=== PATIENT | male | born 1995 | race Caucasian/White ===

== ENCOUNTER 2024-04-03 15:56 | Emergency (ER) | payer SELFPAY ==
[2024-04-03 15:56] VITALS: BP 163/94; PULSE 65; RESP 20; TEMP 36.1; O2SAT 100; BMI 36.0
[2024-04-03 15:57] VITALS: BP 163/94; PULSE 65; RESP 20; TEMP 36.1; O2SAT 100
--- NOTE | 2024-04-03 16:07 | ED.RN ---
C/O BLOOD IN URINE. PT STATES HE THINKS IT WAS BLOOD BECAUSE IT HAS BEEN RED. PT DENIES ANY URINARY SYMPTOMS. DENIES ANY RECENT INJURY OR ILLNESS. PT DENIES ANY N/V/D. PT DENIES ANY OTHER COMPLAINTS.
--- NOTE | 2024-04-03 16:14 | CT_ITS ---
STUDY: CT ABDOMEN AND PELVIS WITHOUT CONTRAST REASON FOR EXAM: Male, 28 years old. Hematuria RADIATION DOSAGE (If Supplied By Facility): CTDIvol = ( 22.91 ) mGy, DLP = ( 1356.55 ) mGycm TECHNIQUE: Transaxial images were obtained from the dome of the diaphragm to the symphysis pubis without oral contrast, and without intravenous contrast. Sagittal and coronal images were reconstructed. Individualized dose optimization techniques were used for this CT. COMPARISON: 03/29/2012 CT abdomen and pelvis FINDINGS: The visualized lung bases are unremarkable. The visualized portions of the heart are within normal limits. Normal liver. Normal gallbladder and extrahepatic biliary system. Normal spleen. Normal pancreas. Normal bilateral adrenal glands. Normal right kidney. Large renal pelvic stone is present measuring approximately 5 mm with additional punctate stone. No evidence of significant hydronephrosis or ureteral stone. Normal visualized stomach. Normal small intestine. Normal colon. The appendix is visualized and appears normal. Normal abdominal aorta. Normal inferior vena cava. Normal retroperitoneum. Normal urinary bladder. Normal abdominal wall. Normal osseous structures. CT/Abdomen/Pelvis without Cont IMPRESSION: Nonobstructive left renal pelvis and 5 mm stone with no significant hydronephrosis or ureteral stone. Otherwise no additional acute intra-abdominal process or focal inflammation. Normal appendix. Electronically Signed: Kashif Vaughn, at 17:00 EST ,
--- NOTE | 2024-04-03 16:22 | EX.ED.DYSGE1 ---
HPI History of Present Illness Chief Complaint: Complaint Narrative Narrative: Chief complaint and HPI: Hematuria. 28-year-old male with no significant past medical history presents for evaluation of hematuria. Onset 2 days ago. Patient denies any fever, chills, dysuria, abdominal pain, nausea, vomiting, back pain. Patient denies being sexually active. He has no concerns for STI. He denies history of UTI or urolithiasis in the past. He denies any penile or testicular pain or or discharge. Review of systems: See HPI Medications: As listed on the chart Allergies: As listed on the chart PFSH: Per chart Vital signs: As listed on the chart. Reviewed. Physical exam: Gen: A&O x3, NAD Head: Normocephalic, atraumatic Eyes: No sclera icterus, conjunctiva clear ENT: Moist mucous membranes Neck: Trachea midline, No JVD CV: RRR, no murmurs, no peripheral edema Resp: Lungs CTA BL, no w/r/c GI: Abd soft, non-distended, non-tender, no r/r/g : Circumcised penis. No penile tenderness or discharge. No penile or testicular swelling. Normal lie and position of the testicles. No testicular tenderness, masses, or skin changes. Cremasteric reflexes intact and equal bilaterally. No rashes. No palpable hernias. No CVA tenderness. Musc: Full ROM, no deformity Skin: Warm, dry Neuro: Alert, oriented, grossly intact, sensation intact Psych: Cooperative, appropriate mood and affect PFSH PFSH Home Medications ?Medication ?Instructions ?Recorded ?Last Taken ?Type No Known/Unobtainable [No Known 09/21/13 Unknown History Home Medications] Allergy/AdvReac Type Severity Reaction Status Date / Time Sulfa (Sulfonamide Allergy Unknown PT UNSURE Verified 04/03/24 16:11 Antibiotics) OF REACTION Social History Smoking Status: Never smoker EXAM Physical Exam Const Vital Signs: 04/03/24 15:56 04/03/24 15:57 04/03/24 17:25 Temperature 97 F L 97.0 F L 98.7 F Temperature Source Temporal Oral Oral Pulse Rate 65 65 64 Respiratory Rate 20 H 20 H 16 Blood Pressure 163/94 H 163/94 H 124/88 H Blood Pressure Mean 117 117 100 Pulse Ox 100 100 97 Oxygen Delivery Method Room Air Room Air Room Air MDM MDM MDM Narrative Medical decision making narrative: 28-year-old male with no significant past medical history presents for evaluation of hematuria. Onset 2 days ago. Differential diagnosis includes but is not limited to UTI, urolithiasis, LACHELLE, electrolyte abnormality. Basic labs ordered including UA and CT abdomen and pelvis. CBC without leukocytosis or anemia. BMP unremarkable without LACHELLE. CT abdomen pelvis shows nonobstructing left renal pelvis and 5 mm stone with no significant hydronephrosis or ureteral stone. UA positive for UTI. Patient has blood, nitrates, bacteria. Urine culture sent. Bladder scan was obtained and patient is not retaining. Per EMRA antibiotic guidelines, patient is low risk for resistance and has not been on recent antibiotics therefore Keflex is appropriate for antibiotic. Patient given first dose here. Patient will be discharged on Keflex 500 mg 4 times daily for 7 days. Follow-up with PCP. He confirmed understanding of the plan. Return precautions explained. Patient stable to discharge home. Impression: 1. UTI 2. Hematuria Lab Data Labs: Laboratory Results - last 24 hr 04/03/24 16:38 WBC 5.4 RBC 5.38 Hgb 15.2 Hct 46.1 MCV 85.7 MCH 28.3 MCHC 33.0 RDW Std Deviation 39.4 RDW Coeff of Janet 12.8 Plt Count 235 MPV 9.5 Immature Gran % (Auto) 0.200 Neut % (Auto) 55.7 Lymph % (Auto) 32.2 [place] % (Auto) 7.9 Eos % (Auto) 3.1 Baso % (Auto) 0.9 Absolute Neuts (auto) 3.0 Absolute Lymphs (auto) 1.75 Nucleated RBC % 0 Sodium 138 Potassium 3.7 Chloride 104 Carbon Dioxide 28.0 Anion Gap 6 BUN 14 Creatinine 0.99 Estim Creat Clear Calc 151.77 Est GFR (MDRD) Af Amer 114 Est GFR (MDRD) Non-Af 94 BUN/Creatinine Ratio 14.1 Glucose 101 Calcium 9.5 Urine Color Yellow Urine Clarity Cloudy Urine pH 6.0 Ur Specific [place] 1.025 Urine Protein 100 H Urine Glucose (UA) Normal Urine Ketones 5 H Urine Occult Blood 250 H Urine Nitrite Positive H Urine Bilirubin 1 H Urine Urobilinogen 8 H Ur Leukocyte Esterase 25 H Urine RBC > 100 SEEN Urine WBC 10-25 SEEN Ur Squamous Epith Cells 0 SEEN Urine Bacteria 1+ Urine Mucus 1+ Radiography Diagnostic Testing: Clinical Impression(s) from Imaging Studies Abdomen/Pelvis CT 04/03/24 16:14 IMPRESSION: Nonobstructive left renal pelvis and 5 mm stone with no significant hydronephrosis or ureteral stone. Otherwise no additional acute intra-abdominal process or focal inflammation. Normal appendix. Electronically Signed: Kashif Mendes, at 17:00 EST , Discharge Plan Triage Chief Complaint: Complaint ED Provider: Pool Guevara Dx/Rx/DC Orders Prescriptions: No Action No Known Home Medications Primary Care Provider: Care Physician,No Primary Referrals: Care Physician,No Primary [Primary Care Provider] - Print Language: Bengali
[2024-04-03 16:49] LABS: Squamous Epithelial Cells - UA 0 SEEN /hpf (0-5)
[2024-04-03 16:51] LABS: Color, Urine Yellow (Yellow); Glucose, Dipstick Normal (Normal); Ketone-Dipstick 5 mg/dl (Negative); Leukocyte Esterase-Dipstick 25 /ul (Negative); Nitrite-Dipstick Positive (Negative); Occult Blood-Urine 250 /ul (Negative); Protein-Dipstick 100 mg/dl (Negative); Specific Gravity, Urine 1.025 (1.002-1.030); Urine Clarity Cloudy (Clear); Urine Urobilinogen 8 mg/dl (Normal)
[2024-04-03 16:55] LABS: Urine Bilirubin Dipstick 1 mg/dL (Negative)
[2024-04-03 16:59] LABS: Red Blood Cells-Urine > 100 SEEN /hpf (0-5); White Blood Cells 10-25 SEEN /hpf (0-5)
[2024-04-03 17:00] LABS: Bacteria 1+ /hpf (None Seen); Mucous, Urine 1+ /hpf (<or=2+)
[2024-04-03 17:05] LABS: Absolute Lymphocyte Count 1.75 X10^3/uL (0.83-4.51); Basophil# 0.05 X10^3/uL; Basophil% 0.9 % (0-1); Eosinophil# 0.17 X10^3/uL; Eosinophils% 3.1 % (0-5); Hematocrit 46.1 % (40-54); Hemoglobin 15.2 g/dL (13.0-16.5); Lymphocyte # 1.75 X10^3/ul (0.83-4.51); Lymphocyte % 32.2 % (19-41); Mean Corpuscular Hgb 28.3 pg (27.0-32.0); Mean Corpuscular Volume 85.7 fL (80-94); Mean Platelet Vol. 9.5 fl (6.2-12.0); Monocyte# 0.43 X10^3/uL; Monocyte% 7.9 % (0-10); NRBC Flagged by Analyzer 0 % (0-5); Neutrophil # 3.02 X10^3/uL (2.7-7.7); Neutrophil % 55.7 % (47-70); Platelet Count 235 K/mm3 (150-450); RBC Distribution Width CV 12.8 % (11.6-14.6); RBC Distribution Width SD 39.4 fl (35.1-43.9); Red Blood Count 5.38 M/mm3 (4.6-6.2); White Blood Count 5.4 K/mm3 (4.4-11.0)
[2024-04-03] MEDS: Cephalexin 250 MG Capsule 500 MG PO (17:20)
[2024-04-03 17:23] LABS: Anion Gap 6 (5-15); BUN 14 mg/dL (7-18); BUN/Creat Ratio 14.1 RATIO (10-20); Calcium,Total 9.5 mg/dL (8.5-10.1); Chloride 104 mmol/L (98-107); Creatinine, Serum 0.99 mg/dL (0.70-1.30); EST Glomerular Filtration Rate 94 mL/min (>60); Est Glom Filt Rate - Afr Amer 114 mL/min (>60); Estimated Creatinine Clearance 151.77 ml/min; Glucose 101 mg/dL (74-106); Potassium 3.7 mmol/L (3.5-5.1); Sodium Level 138 mmol/L (136-145)
[2024-04-03 17:25] VITALS: BP 124/88; PULSE 64; RESP 16; TEMP 37.1; O2SAT 97
[2024-04-03 17:39] VITALS: BP 125/76; PULSE 68; RESP 16; TEMP 37.1; O2SAT 97
== END 2024-04-03 17:49 | disposition home or self-care (01) ==
PROVIDERS: Emergency Provider Surgery; Visit Provider Surgery
DX: N39.0 Urinary tract infection, site not specified (principal)
CPT/HCPCS: 74176; 80048; 81001; 85025; 87086; 87088; 99283